=== PATIENT | male | born 1965 | race Two or more races ===

== ENCOUNTER 2020-01-29 12:35 | Emergency (ER) | payer MEDICAID ==
[~2020-01-29] VITALS: Ht 177.8 cm; Wt 102.5 kg
[2020-01-29 13:03] VITALS: BP 156/107
== END 2020-01-29 13:22 | disposition home or self-care (01) ==
LOC: ER 12:35
DX: I10 Essential (primary) hypertension (principal); F41.9 Anxiety disorder, unspecified; Z76.0 Encounter for issue of repeat prescription